=== PATIENT | male | born 1965 | race Caucasian/White ===

== ENCOUNTER 2016-11-04 17:11 | Inpatient (IN) | payer OTHER ==
[~2016-11-04] VITALS: Ht 177.8 cm; Wt 103.0 kg
[2016-11-04] MEDS ORDERED: DIPHTH/TETANUS/ACEL PERTUSSIS (BOOSTER) 0.5 ML VIAL/PFS IM ONE ×2 (17:16→17:32)
[2016-11-04] MEDS ORDERED: ceFAZolin 2 GM PREMIX 50 ML ONE (17:17)
[2016-11-04] MEDS ORDERED: ceFAZolin 2 GM PREMIX 50 ML IV STA (17:32)
[2016-11-04 17:33] VITALS: O2SAT 98
[2016-11-04 17:34] LABS: AUTOMATED NEUTROPHIL # 4.1 TH/MM3 (1.8-7.7); BASOPHIL # 0.1 TH/MM3 (0-0.2); BASOPHIL % 0.7 % (0.0-2.0); EOSINOPHIL # 0.4 TH/MM3 (0-0.4); EOSINOPHIL % 3.4 % (0.0-4.0); HEMATOCRIT 33.1 % (39.0-51.0); LYMPH % 52.3 % (9.0-44.0); LYMPHOCYTE # 5.8 TH/MM3 (1.0-4.8); MEAN CELL VOLUME 86.5 FL (80.0-100.0); MEAN CORPUSCULAR HEMOGLOBIN 29.6 PG (27.0-34.0); MEAN CORPUSCULAR HGB CONC 34.2 % (32.0-36.0); MONO % 6.8 % (0.0-8.0); NEUT % 36.8 % (16.0-70.0); PLATELET COUNT 202 TH/MM3 (150-450); RED BLOOD COUNT 3.83 MIL/MM3 (4.50-5.90); RED CELL DISTRIBUTION WIDTH 12.9 % (11.6-17.2); WHITE BLOOD COUNT 11.1 TH/MM3 (4.0-11.0)
[2016-11-04 17:37] LABS: HEMO FLAGS AUTO DIFF
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
[2016-11-04 17:43] LABS: I-STAT POTASSIUM 3.9 MMOL/L (3.5-4.9)
[2016-11-04 17:44] LABS: INTERNATIONAL NORMALIZED RATIO 1.1 RATIO; PROTHROMBIN TIME - PATIENT 12.3 SEC (9.8-11.6)
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
[2016-11-04] MEDS ORDERED: IOHEXOL 350 MG/ML 10 ML VIAL (for RAD DIAG) IV ONE (17:46)
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
[2016-11-04 18:11] LABS: EOSINOPHILS 4 % (0-4); NEUTROPHIL # MANUAL DIFF 5.2 TH/MM3 (1.8-7.7); PLATELET ESTIMATE SMEAR NORMAL (NORMAL); PLATELET MORPHOLOGY NORMAL (NORMAL); POLYS (SEG NEUTROPHILS) 47 % (16-70); SCAN/DIFF FINAL DIFF MANUAL; WBC DIFF SAMPLE 100
[2016-11-04] MEDS ORDERED: HYDROmorphone HCL PF 1 MG/ML VIAL IV PUSH ONE (18:45)
[2016-11-04] MEDS ORDERED: ONDANSETRON HCL 4 MG/2 ML VIAL IV PRN (19:00)
[2016-11-04] MEDS ORDERED: CHLORHEXIDINE GLUCONATE 2 % 1 PACK (2 CLOTHS) TOP PRN (19:00)
[2016-11-04] MEDS ORDERED: MISCELLANEOUS NURSING INFORMATION XX SCH (19:00)
[2016-11-04] MEDS ORDERED: MAGNESIUM HYDROXIDE SUSP 30 ML CUP PO PRN (19:00)
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
[2016-11-04] MEDS: LACTATED RINGER'S 1000 ML INJ 1,000 ML IV SCH ×2 (19:58→23:35)
[2016-11-04 22:30] VITALS: BP 112/74; PULSE 102; RESP 20; TEMP 96.5; O2SAT 95
[2016-11-04 23:00] LABS: HEMATOCRIT 26.6 % (39.0-51.0); REVIEW FLAG FINAL
[2016-11-04] MEDS: DOCUSATE SODIUM 100 MG CAP PO SCH (23:34)
[2016-11-04] MEDS: CHLORHEXIDINE GLUCONATE 2 % 1 PACK (2 CLOTHS) TOP SCH (23:37)
[2016-11-05 00:20] VITALS: BP 134/50; PULSE 61; RESP 16; TEMP 98.4; O2SAT 96
[2016-11-05] MEDS: MORPHINE SULFATE 8 MG/ML INJ IV PUSH PRN ×4 (00:40→11:38)
[2016-11-05 04:00] VITALS: BP 98/66; PULSE 91; RESP 16; TEMP 97.8; O2SAT 99
[2016-11-05 05:42] LABS: HEMATOCRIT 23.2 % (39.0-51.0); MEAN CELL VOLUME 85.8 FL (80.0-100.0); MEAN CORPUSCULAR HEMOGLOBIN 30.9 PG (27.0-34.0); RED CELL DISTRIBUTION WIDTH 13.4 % (11.6-17.2); WHITE BLOOD COUNT 10.4 TH/MM3 (4.0-11.0)
[2016-11-05 05:43] LABS: AUTOMATED NEUTROPHIL # 6.4 TH/MM3 (1.8-7.7); BASOPHIL % 0.2 % (0.0-2.0); EOSINOPHIL % 0.4 % (0.0-4.0); LYMPH % 30.1 % (9.0-44.0); LYMPHOCYTE # 3.1 TH/MM3 (1.0-4.8); MONO % 7.5 % (0.0-8.0); NEUT % 61.8 % (16.0-70.0); PLATELET COUNT 147 TH/MM3 (150-450)
[2016-11-05 05:44] LABS: HEMO FLAGS AUTO DIFF
[2016-11-05 08:00] VITALS: BP 95/71; PULSE 103; RESP 18; TEMP 97.5; O2SAT 100
[2016-11-05] MEDS: DOCUSATE SODIUM 100 MG CAP PO SCH ×2 (08:31→21:09)
[2016-11-05 10:51] LABS: SCAN/DIFF AUTO DIFF CONFIRMED
[2016-11-05 12:00] VITALS: BP 118/68; PULSE 105; RESP 18; TEMP 97; O2SAT 97
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
[2016-11-05] MEDS: HYDROmorphone HCL PF 1 MG/ML VIAL IV PRN ×3 (13:09→23:56)
[2016-11-05] MEDS: ceFAZolin 2 GM PREMIX 50 ML IV SCH ×2 (13:10→21:10)
[2016-11-05 16:00] VITALS: BP 101/72; PULSE 103; RESP 18; TEMP 97.7; O2SAT 100
[2016-11-05] MEDS: LACTATED RINGER'S 1000 ML INJ 1,000 ML IV SCH ×2 (16:27→21:10)
[2016-11-05 20:05] VITALS: BP 115/77; PULSE 99; RESP 17; TEMP 97.2; O2SAT 96
[2016-11-05] MEDS: CHLORHEXIDINE GLUCONATE 2 % 1 PACK (2 CLOTHS) TOP SCH (21:10)
[2016-11-06] VITALS (10 sets, daily range): BP systolic 110–132; BP diastolic 65–84; PULSE 99–123; RESP 16–18; TEMP 98.2–99.8; O2SAT 93–100
[2016-11-06] MEDS: LACTATED RINGER'S 1000 ML INJ 1,000 ML IV SCH ×4 (02:16→19:25)
[2016-11-06] MEDS: HYDROmorphone HCL PF 1 MG/ML VIAL IV PRN ×3 (05:45→16:04)
[2016-11-06] MEDS: ceFAZolin 2 GM PREMIX 50 ML IV SCH ×3 (05:45→19:25)
[2016-11-06 05:58] LABS: AUTOMATED NEUTROPHIL # 5.1 TH/MM3 (1.8-7.7); BASOPHIL % 0.3 % (0.0-2.0); EOSINOPHIL # 0.2 TH/MM3 (0-0.4); EOSINOPHIL % 2.6 % (0.0-4.0); LYMPH % 34.8 % (9.0-44.0); LYMPHOCYTE # 3.4 TH/MM3 (1.0-4.8); MEAN CELL VOLUME 85.7 FL (80.0-100.0); MEAN CORPUSCULAR HEMOGLOBIN 30.8 PG (27.0-34.0); MEAN CORPUSCULAR HGB CONC 35.9 % (32.0-36.0); MONO % 9.4 % (0.0-8.0); NEUT % 52.9 % (16.0-70.0); PLATELET COUNT 141 TH/MM3 (150-450); RED BLOOD COUNT 2.34 MIL/MM3 (4.50-5.90); RED CELL DISTRIBUTION WIDTH 12.9 % (11.6-17.2); WHITE BLOOD COUNT 9.7 TH/MM3 (4.0-11.0)
[2016-11-06 06:20] LABS: HEMO FLAGS AUTO DIFF
[2016-11-06] MEDS: DOCUSATE SODIUM 100 MG CAP PO SCH ×2 (08:37→19:24)
[2016-11-06 08:58] LABS: PLATELET ESTIMATE SMEAR LOW (NORMAL); PLATELET MORPHOLOGY NORMAL (NORMAL); SCAN/DIFF AUTO DIFF CONFIRMED
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
[2016-11-06] MEDS: SODIUM CHLORIDE 0.9% FLUSH 10 ML FLUSH IV FLUSH PRN (16:07)
[2016-11-06] MEDS: CHLORHEXIDINE GLUCONATE 2 % 1 PACK (2 CLOTHS) TOP SCH (19:25)
[2016-11-06] MEDS ORDERED: WALKER WHEELS/F1 MIS (20:37)
[2016-11-06 21:07] LABS: MEAN CORPUSCULAR HGB CONC 36.2 % (32.0-36.0)
[2016-11-07] MEDS: HYDROmorphone HCL PF 1 MG/ML VIAL IV PRN (00:04)
[2016-11-07 02:30] VITALS: BP 108/66; PULSE 93; RESP 16; TEMP 99; O2SAT 99
[2016-11-07 04:00] VITALS: BP 177/79; PULSE 100; RESP 16; TEMP 96; O2SAT 96
[2016-11-07] MEDS: ceFAZolin 2 GM PREMIX 50 ML IV SCH ×2 (05:14→10:30)
[2016-11-07 06:26] LABS: HEMATOCRIT 23.5 % (39.0-51.0); MEAN CELL VOLUME 80.9 FL (80.0-100.0); MEAN CORPUSCULAR HEMOGLOBIN 29.3 PG (27.0-34.0); PLATELET COUNT 126 TH/MM3 (150-450); RED BLOOD COUNT 2.91 MIL/MM3 (4.50-5.90); RED CELL DISTRIBUTION WIDTH 16.1 % (11.6-17.2); WHITE BLOOD COUNT 7.9 TH/MM3 (4.0-11.0)
[2016-11-07 06:34] LABS: REVIEW FLAG FINAL
[2016-11-07] MEDS: LACTATED RINGER'S 1000 ML INJ 1,000 ML IV SCH ×2 (07:08→07:09)
[2016-11-07] MEDS: DOCUSATE SODIUM 100 MG CAP PO SCH (07:30)
[2016-11-07] MEDS: SODIUM CHLORIDE 0.9% FLUSH 10 ML FLUSH IV FLUSH PRN (07:31)
[2016-11-07 08:00] VITALS: BP 125/83; PULSE 95; RESP 16; TEMP 98.4; O2SAT 98
[2016-11-07 11:28] VITALS: BP 141/76; PULSE 92; TEMP 98.6; O2SAT 97
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
[2016-11-07] MEDS ORDERED: PERI8.6T PO (14:46)
[2016-11-07] MEDS ORDERED: PERC5TAB12 PO (14:46)
== END 2016-11-07 17:35 | disposition home or self-care (01) | DRG 605 ==
LOC: NEPI 17:11 → NEDA 17:42 → EDBD 17:42 → N06A 20:46
PROVIDERS: ADMIT Surgery; ATTEND Surgery
PROC: 30233N1 Transfusion of Nonautologous Red Blood Cells into Peripheral Vein, Percutaneous Approach (ICD-10-PCS; principal; 2016-11-06)
DX: S71.102A Unspecified open wound, left thigh, initial encounter (principal); X95.9XXA Assault by unspecified firearm discharge, initial encounter; Y93.K1 Activity, walking an animal; Y92.89 Other specified places as the place of occurrence of the external cause; D64.9 Anemia, unspecified
CPT/HCPCS: 36430; 71010; 72170; 73551; 75635; 80048; 82435; 82565; 82947; 84132; 84295; 84520; 85007; 85014; 85018; 85025; 85027; 85610; 85730; 86850; 86900; 86901; 86920; 90471; 90715; 94150; 96374; 99291; G0390; J0690; J1170; J2270; J3010; J7120; P9016; Q9967